=== PATIENT | female | born 1950 | race Caucasian/White ===

== ENCOUNTER 2018-10-27 11:54 | Outpatient (CLI) | payer MEDICARE ==
--- NOTE | 2018-10-27 13:32 | MRI ---
MRI BRAIN AND INTERNAL AUDITORY CANALS WITH AND WITHOUT CONTRAST: Date: 10/27/2018 HISTORY: 67-year-old female with vertigo TECHNIQUE: Multiplanar, multisequence MRI, both whole brain images and thin slices through the IACs, pre and pos t IV injection of gadolinium-based contrast agent. FINDINGS: There is no obstructive hydrocephalus. There is no midline shift or any other evidence of mass effect . There is no extra-axial fluid collection. There are mild chronic ischemic white matter changes due to microvascular atherosclerosis. There is otherwise no major intra-axial signal abnormality, abn ormal enhancement, mass, recent hemorrhage, or restricted diffusion. There is no abnormal enhancement, mass, or morphologic abnormality, involving the cerebellopontine an gles, 7th-8th nerve complexes, internal auditory canals, cochleae, vestibules, vestibular aqueducts, or semicircular canals. IMPRESSION: 1) mild chronic ischemic white matter changes. 2) otherwise negative
== END 2018-10-27 11:55 | disposition home or self-care (01) ==
LOC: SCSMRI 11:54
PROVIDERS: ATTEND Psychiatry & Neurology Neurology
DX: R42 Dizziness and giddiness (principal); I67.82 Cerebral ischemia
CPT/HCPCS: 70553; 82565

== ENCOUNTER 2021-01-02 11:01 | Inpatient (IN) | payer MEDICARE ==
[~2021-01-02 11:01] MED LIST: Iopamidol-370 76% 500 ML 1 ML ONE
[2021-01-02 12:07] LABS: #Eosinphils 0.1 thou/uL (0.0-0.7); #Lymphocytes 1.2 thou/uL (1.20-3.40); #Monocytes 0.6 thou/uL (0.11-0.59); #Neutrophils 3.6 thou/uL (1.40-6.50); %Basophils 0.4 % (0.0-1.0); %Lymphocytes 21.4 % (21.0-51.0); %Monocytes 10.9 % (0.0-10.0); %Neutrophils 65.3 % (42.0-75.0); Hemoglobin 13.9 g/dL (12.0-16.0); Mean Corpuscular HGB CONC 34.5 g/dL (32.0-36.0); Mean Corpuscular Hemoglobin 32.4 pg (27.0-31.0); Mean Platelet Volume 6.8 fL (7.4-10.4); Platelet Count 383 thou/uL (130-400); RBC Distribution Width 11.7 % (11.5-14.5); Red Blood Cell (RBC) Count 4.28 mill/uL (4.20-5.40); White Blood Cell (WBC) Count 5.5 thou/uL (4.8-10.8)
[2021-01-02 12:25] LABS: Acetaminophen Less than 6.0 mcg/mL (10.0-30.0); Alcohol Less than 10 mg/dL (Less than 10); Salicylate Less than 8.0 mg/dL (15.0-30.0)
[2021-01-02 12:29] LABS: ALT (SGPT) 9 U/L (8-55); AST (SGOT) 21 U/L (5-34); Albumin 3.4 g/dL (3.4-4.8); Alkaline Phosphatase 58 U/L (40-110); Anion Gap 14 mmol/L (10-20); BUN (Urea Nitrogen) 9 mg/dL (9.8-20.1); Bilirubin, Total 0.5 mg/dL (0.2-1.2); Calc. Creatinine Clearance 0 mL/min (70-130); Carbon Dioxide 27 mmol/L (23-31); Chloride 87 mmol/L (98-107); Globulin 2.8 g/dL (2.4-3.5); Glucose 85 mg/dL (83-110); Lipase 27 U/L (8-78); Potassium 4.2 mmol/L (3.5-5.1); Protein, Total 6.2 g/dL (5.8-8.1); Sodium 124 mmol/L (136-145)
[2021-01-02] MEDS ORDERED: Guaifenesin DM 100-10/5 ML UDCUP PO PRN (15:57)
[2021-01-02] MEDS ORDERED: Acetaminophen 325 MG TAB PO PRN ×2 (15:57→18:15)
[2021-01-02] MEDS ORDERED: Senokot S 8.6-50 MG TAB PO PRN (15:57)
[2021-01-02] MEDS ORDERED: Multivitamins, Adult 10 ML, Folic Acid 1 MG, Thiamine HCl 100 MG in Dextrose 5 %-0.45 %... IV SCH (16:30)
[2021-01-02 17:37] VITALS: BMI 27.3
[2021-01-02] MEDS ORDERED: Sodium Chloride 0.9% 1,000 ML IV SCH (18:15)
[2021-01-02] MEDS ORDERED: Ondansetron PF 4 MG/2 ML Vial IVP PRN (18:15)
[2021-01-02] MEDS ORDERED: Ondansetron ODT 4 MG TAB SL PRN (18:15)
[2021-01-02] MEDS: Nicotine 14 MG PATCH TD SCH (18:21)
[2021-01-02] MEDS: Famotidine 20 MG TAB PO SCH (20:37)
[2021-01-02 21:08] LABS: Bacteria/HPF None Seen HPF (None Seen); Bilirubin Negative (Negative); Blood, Urine 2+ (Negative); Clarity Clear (Clear); Glucose, Urine (Dipstick) Normal (Negative); Ketone, Urine 10 mg/dL (Negative); Leukocyte Negative Leu/uL (Negative); Nitrite Negative (Negative); Protein, Urine (Dipstick) 30 mg/dL (Neg-Trace); Urobilinogen Normal mg/dL (Less than 2)
[2021-01-02 21:09] LABS: Specific Gravity, Urine 1.054 (1.002-1.036)
[2021-01-02 22:55] LABS: Creatinine, Urine 163.69 mg/dL (47-110); Sodium, Urine Less than 20 mmol/L (Not Available)
[2021-01-03] MEDS ORDERED: Melatonin 3 MG TAB PO PRN (00:56)
[2021-01-03 08:03] LABS: #Eosinphils 0.1 thou/uL (0.0-0.7); #Lymphocytes 1.1 thou/uL (1.20-3.40); #Monocytes 0.6 thou/uL (0.11-0.59); #Neutrophils 3.2 thou/uL (1.40-6.50); %Basophils 0.6 % (0.0-1.0); %Eosinophils 2.7 % (0.0-10.0); %Lymphocytes 22.5 % (21.0-51.0); %Neutrophils 63.1 % (42.0-75.0); Hemoglobin 12.3 g/dL (12.0-16.0); Mean Corpuscular HGB CONC 34.5 g/dL (32.0-36.0); Mean Corpuscular Hemoglobin 32.5 pg (27.0-31.0); Mean Corpuscular Volume 94.4 fL (78.0-98.0); Mean Platelet Volume 7.1 fL (7.4-10.4); Platelet Count 365 thou/uL (130-400); RBC Distribution Width 11.7 % (11.5-14.5); Red Blood Cell (RBC) Count 3.78 mill/uL (4.20-5.40); White Blood Cell (WBC) Count 5.1 thou/uL (4.8-10.8)
[2021-01-03 08:11] LABS: ALT (SGPT) 10 U/L (8-55); AST (SGOT) 22 U/L (5-34); Albumin 3.1 g/dL (3.4-4.8); Alkaline Phosphatase 54 U/L (40-110); Anion Gap 14 mmol/L (10-20); BUN (Urea Nitrogen) 8 mg/dL (9.8-20.1); Bilirubin, Total 0.5 mg/dL (0.2-1.2); Calc. Creatinine Clearance 61 mL/min (70-130); Calcium 8.8 mg/dL (7.8-10.44); Carbon Dioxide 24 mmol/L (23-31); Chloride 90 mmol/L (98-107); Globulin 3.1 g/dL (2.4-3.5); Glucose 91 mg/dL (83-110); Potassium 3.7 mmol/L (3.5-5.1); Protein, Total 6.2 g/dL (5.8-8.1); Sodium 124 mmol/L (136-145)
[2021-01-03] MEDS: Enoxaparin Sodium 40 MG/0.4 ML SYRINGE SC SCH (08:28)
[2021-01-03] MEDS: Famotidine 20 MG TAB PO SCH ×2 (08:28→22:00)
[2021-01-03 09:30] LABS: Prothrombin Time 13.6 sec (12.0-14.7)
[2021-01-03] MEDS ORDERED: Temazepam 15 MG CAP PO PRN (10:10)
[2021-01-03] MEDS: Sodium Chloride 1 GM TAB PO SCH ×3 (10:52→20:34)
[2021-01-03 14:29] LABS: SARS-CoV-2 PCR by NAA Not Detected (NotDetected)
[2021-01-03] MEDS: Nicotine 14 MG PATCH TD SCH (19:16)
[2021-01-04] MEDS ORDERED: Iothalamate Meglumine 60% 50 ML VIAL FS ONE (07:54)
[2021-01-04] MEDS ORDERED: Levofloxacin 500 mg/D5W 100 ml Premix Bag ONE (08:03)
[2021-01-04] MEDS ORDERED: Promethazine HCl 25 MG/ML VIAL IVPB PRN (08:10)
[2021-01-04] MEDS ORDERED: Promethazine HCl 25 MG/ML VIAL IM PRN (08:10)
[2021-01-04] MEDS ORDERED: Ondansetron HCl/PF 4 MG/2 ML Vial IVP PRN (08:10)
[2021-01-04] MEDS ORDERED: Fentanyl 100 MCG/2 ML VIAL ONE (08:15)
[2021-01-04] MEDS ORDERED: Lidocaine 1% PF 5 ML VIAL ONE (08:17)
[2021-01-04] MEDS ORDERED: PHENYLEPHRINE-NS 100 MCG/ML 10 ML SYRINGE ONE (08:17)
[2021-01-04] MEDS ORDERED: Ondansetron PF 4 MG/2 ML Vial ONE (08:17)
[2021-01-04] MEDS ORDERED: Succinylcholine 200 MG/10 ml SYRINGE FS ONE (08:17)
[2021-01-04] MEDS: Famotidine 20 MG TAB PO SCH ×2 (10:19→21:00)
[2021-01-04] MEDS: Sodium Chloride 1 GM TAB PO SCH ×3 (10:19→22:57)
[2021-01-04 10:57] LABS: Anion Gap 14 mmol/L (10-20); BUN (Urea Nitrogen) 8 mg/dL (9.8-20.1); Calc. Creatinine Clearance 59 mL/min (70-130); Calcium 8.4 mg/dL (7.8-10.44); Carbon Dioxide 22 mmol/L (23-31); Chloride 94 mmol/L (98-107); Glucose 88 mg/dL (83-110); Potassium 3.7 mmol/L (3.5-5.1); Sodium 126 mmol/L (136-145)
[2021-01-04 11:07] LABS: Phosphorus 3.4 mg/dL (2.3-4.7)
[2021-01-04] MEDS: Enoxaparin Sodium 40 MG/0.4 ML SYRINGE SC SCH (11:41)
[2021-01-04] MEDS ORDERED: Ondansetron PF 4 MG/2 ML Vial IVP SCH (12:00)
[2021-01-04] MEDS ORDERED: Cepastat Lozenges 1 LOZ PO PRN (12:51)
[2021-01-04] MEDS: Nicotine 14 MG PATCH TD SCH (16:21)
[2021-01-04] MEDS: Ondansetron PF 4 MG/2 ML Vial IVP PRN (18:26)
[2021-01-05 07:35] LABS: Anion Gap 17 mmol/L (10-20); BUN (Urea Nitrogen) 7 mg/dL (9.8-20.1); Calc. Creatinine Clearance 59 mL/min (70-130); Calcium 8.4 mg/dL (7.8-10.44); Carbon Dioxide 15 mmol/L (23-31); Chloride 96 mmol/L (98-107); Glucose 88 mg/dL (83-110); Potassium 5.3 mmol/L (3.5-5.1); Sodium 123 mmol/L (136-145)
[2021-01-05 07:46] VITALS: BP 158/79; TEMP 97.6
[2021-01-05] MEDS: Famotidine 20 MG TAB PO SCH (07:56)
[2021-01-05] MEDS ORDERED: Lidocaine 1% PF 5 ML VIAL ONE (07:56)
[2021-01-05] MEDS ORDERED: Sodium Bicarbonate 2.5 MEQ/5 ML VIAL ONE (07:56)
[2021-01-05] MEDS: Enoxaparin Sodium 40 MG/0.4 ML SYRINGE SC SCH (07:56)
[2021-01-05] MEDS: Sodium Chloride 1 GM TAB PO SCH ×2 (08:00→14:33)
[2021-01-05] MEDS: Ondansetron PF 4 MG/2 ML Vial IVP PRN (10:06)
[2021-01-05] MEDS: Sodium Bicarbonate Tab 325 MG TAB PO SCH ×2 (10:09→14:33)
[2021-01-05 11:44] LABS: RBC Count-Automated (BF) 1834 /cu.mm; WBC/Nucleated-Auto (BF) 1177 /cu.mm
[2021-01-05 12:10] LABS: BF Color Yellow; Body Fluid Source Peritoneal Fluid; Clarity Hazy (Clear); Tube # EDTA
[2021-01-05 12:34] LABS: BF Segmented Neutrophils 2 %; Cell Count Non Hematic 85 %; Lymphocytes 13 %
[2021-01-05] MEDS: Nicotine 14 MG PATCH TD SCH (14:27)
[2021-01-05 18:51] LABS: Anion Gap 15 mmol/L (10-20); BUN (Urea Nitrogen) 8 mg/dL (9.8-20.1); Calc. Creatinine Clearance 52 mL/min (70-130); Calcium 8.6 mg/dL (7.8-10.44); Carbon Dioxide 27 mmol/L (23-31); Chloride 95 mmol/L (98-107); Glucose 113 mg/dL (83-110); Potassium 4.5 mmol/L (3.5-5.1); Sodium 132 mmol/L (136-145)
== END 2021-01-05 20:03 | disposition home or self-care (01) | DRG 660 ==
LOC: ERS 11:01 → T4-B 14:44
PROVIDERS: ADMIT Internal Medicine; ATTEND Family Medicine
PROC: 0TB48ZX Excision of Left Kidney Pelvis, Via Natural or Artificial Opening Endoscopic, Diagnostic (ICD-10-PCS; principal; 2021-01-02)
PROC: BT1F1ZZ Fluoroscopy of Left Kidney, Ureter and Bladder using Low Osmolar Contrast (ICD-10-PCS; 2021-01-02)
PROC: 0T778DZ Dilation of Left Ureter with Intraluminal Device, Via Natural or Artificial Opening Endoscopic (ICD-10-PCS; 2021-01-02)
PROC: 0W9G3ZZ Drainage of Peritoneal Cavity, Percutaneous Approach (ICD-10-PCS; 2021-01-05)
DX: N13.30 Unspecified hydronephrosis (principal); E22.2 Syndrome of inappropriate secretion of antidiuretic hormone; R18.8 Other ascites; N17.9 Acute kidney failure, unspecified; F17.210 Nicotine dependence, cigarettes, uncomplicated; R31.9 Hematuria, unspecified; G47.00 Insomnia, unspecified; N18.9 Chronic kidney disease, unspecified; J44.9 Chronic obstructive pulmonary disease, unspecified; Z88.5 Allergy status to narcotic agent; Z71.6 Tobacco abuse counseling; Z79.899 Other long term (current) drug therapy
CPT/HCPCS: 36415; 49083; 71260; 74177; 74420; 80048; 80053; 80307; 81001; 82040; 82042; 82570; 83690; 83735; 83880; 83930; 83935; 84100; 84300; 84484; 85025; 85060; 85610; 85730; 87070; 87205; 88112; 88305; 89051; 93005; 93306; C2617; J1650; J1956; J2405; J3010; J3411; J7042; Q9961-U8; Q9967; U0003; U0005

== ENCOUNTER 2021-01-11 12:44 | Inpatient (IN) | payer MEDICARE ==
[2021-01-11 13:14] LABS: #Eosinphils 0.2 thou/uL (0.0-0.7); #Lymphocytes 1.5 thou/uL (1.20-3.40); #Monocytes 0.7 thou/uL (0.11-0.59); #Neutrophils 5.7 thou/uL (1.40-6.50); %Basophils 0.4 % (0.0-1.0); %Eosinophils 2.7 % (0.0-10.0); %Monocytes 8.2 % (0.0-10.0); %Neutrophils 70.7 % (42.0-75.0); Hemoglobin 13.2 g/dL (12.0-16.0); Mean Corpuscular HGB CONC 32.3 g/dL (32.0-36.0); Mean Corpuscular Hemoglobin 30.8 pg (27.0-31.0); Mean Corpuscular Volume 95.4 fL (78.0-98.0); Mean Platelet Volume 6.3 fL (7.4-10.4); Platelet Count 426 thou/uL (130-400); RBC Distribution Width 12.4 % (11.5-14.5); Red Blood Cell (RBC) Count 4.28 mill/uL (4.20-5.40); White Blood Cell (WBC) Count 8.1 thou/uL (4.8-10.8)
[2021-01-11 13:33] LABS: ALT (SGPT) 12 U/L (8-55); AST (SGOT) 21 U/L (5-34); Alkaline Phosphatase 63 U/L (40-110); Anion Gap 18 mmol/L (10-20); BUN (Urea Nitrogen) 17 mg/dL (9.8-20.1); Bilirubin, Total 0.4 mg/dL (0.2-1.2); Calc. Creatinine Clearance 0 mL/min (70-130); Calcium 8.3 mg/dL (7.8-10.44); Carbon Dioxide 24 mmol/L (23-31); Chloride 97 mmol/L (98-107); Glucose 69 mg/dL (83-110); Lipase 18 U/L (8-78); Potassium 4.2 mmol/L (3.5-5.1); Sodium 135 mmol/L (136-145)
[2021-01-11] MEDS ORDERED: Fentanyl 100 MCG/2 ML VIAL ONE (14:12)
[2021-01-11] MEDS ORDERED: Ondansetron PF 4 MG/2 ML Vial ONE (14:12)
[2021-01-11 14:14] LABS: Bilirubin 1+ (Negative); Blood, Urine 3+ (Negative); Clarity Turbid (Clear); Glucose, Urine (Dipstick) Normal (Negative); Ketone, Urine 10 mg/dL (Negative); Leukocyte 500 Leu/uL (Negative); Nitrite Negative (Negative); Protein, Urine (Dipstick) 100 mg/dL (Neg-Trace); Specific Gravity, Urine 1.029 (1.002-1.036); Squamous Epithelial 0-3 HPF (0-3); pH, Urine 5.5 (5.0-9.0)
[2021-01-11 14:23] LABS: WBC/HPF 21-50 HPF (0-3)
[2021-01-11 14:24] LABS: Bacteria/HPF 1+ HPF (None Seen)
[2021-01-11] MEDS ORDERED: cefTRIAXone\\ROCEPHIN 2 GM VIAL ONE (14:51)
[2021-01-11] MEDS ORDERED: diphenhydrAMINE 50 MG/ML VIAL ONE (15:40)
[2021-01-11 17:12] VITALS: BMI 25.9
[2021-01-11] MEDS ORDERED: Ondansetron PF 4 MG/2 ML Vial IVP PRN (18:27)
[2021-01-11] MEDS ORDERED: Acetaminophen 325 MG TAB PO PRN (18:27)
[2021-01-11] MEDS ORDERED: Ondansetron ODT 4 MG TAB PO PRN (18:27)
[2021-01-11] MEDS ORDERED: hydrALAZINE 20 MG/ML VIAL SLOW IVP PRN (18:27)
[2021-01-11] MEDS ORDERED: Benzonatate 100 MG CAP PO PRN (18:27)
[2021-01-11] MEDS ORDERED: Promethazine HCl 12.5 MG in Sodium Chloride 0.9% 50 ML IVPB PRN (18:27)
[2021-01-11] MEDS ORDERED: Loratadine 10 MG TAB PO PRN (18:34)
[2021-01-11] MEDS: Acetaminophen/Codeine 30-300mg Tablet PO SCH ×2 (20:14→21:42)
[2021-01-11] MEDS: Nicotine 14 MG PATCH TD SCH (20:17)
[2021-01-11] MEDS ORDERED: traMADol HCl 50 MG TAB PO SCH (20:41)
[2021-01-11] MEDS ORDERED: HYDROcodone/Acetaminophen 5/325 mg Tablet PO PRN (23:10)
[2021-01-11] MEDS ORDERED: Morphine 4 MG/ML VIAL SLOW IVP PRN (23:27)
[2021-01-12 07:25] LABS: #Eosinphils 0.2 thou/uL (0.0-0.7); #Lymphocytes 1.3 thou/uL (1.20-3.40); #Monocytes 0.6 thou/uL (0.11-0.59); #Neutrophils 4.6 thou/uL (1.40-6.50); %Basophils 0.2 % (0.0-1.0); %Eosinophils 2.4 % (0.0-10.0); %Lymphocytes 19.1 % (21.0-51.0); %Monocytes 8.7 % (0.0-10.0); %Neutrophils 69.5 % (42.0-75.0); Hemoglobin 11.7 g/dL (12.0-16.0); Mean Corpuscular HGB CONC 32.8 g/dL (32.0-36.0); Mean Corpuscular Hemoglobin 31.9 pg (27.0-31.0); Mean Corpuscular Volume 97.1 fL (78.0-98.0); Mean Platelet Volume 6.4 fL (7.4-10.4); Platelet Count 420 thou/uL (130-400); RBC Distribution Width 12.3 % (11.5-14.5); Red Blood Cell (RBC) Count 3.66 mill/uL (4.20-5.40); White Blood Cell (WBC) Count 6.6 thou/uL (4.8-10.8)
[2021-01-12 07:43] LABS: Anion Gap 14 mmol/L (10-20); BUN (Urea Nitrogen) 15 mg/dL (9.8-20.1); Calc. Creatinine Clearance 43 mL/min (70-130); Calcium 8.4 mg/dL (7.8-10.44); Carbon Dioxide 26 mmol/L (23-31); Chloride 98 mmol/L (98-107); Potassium 4.2 mmol/L (3.5-5.1); Sodium 134 mmol/L (136-145)
[2021-01-12 07:49] LABS: Glucose 55 mg/dL (83-110)
[2021-01-12] MEDS ORDERED: Sodium Bicarbonate 2.5 MEQ/5 ML VIAL ONE (08:18)
[2021-01-12] MEDS ORDERED: Lidocaine 1% PF 5 ML VIAL ONE (08:18)
[2021-01-12] MEDS ORDERED: Sodium Chloride 0.9% 10 ML ONE (08:18)
[2021-01-12] MEDS ORDERED: Enoxaparin Sodium 40 MG/0.4 ML SYRINGE SC SCH (09:00)
[2021-01-12] MEDS: Nicotine 14 MG PATCH TD SCH (16:55)
[2021-01-12] MEDS ORDERED: Mag-Al 1200 mg/1200 mg/30 ML UDCUP PO SCH (22:24)
[2021-01-13 07:09] LABS: #Eosinphils 0.1 thou/uL (0.0-0.7); #Lymphocytes 1.1 thou/uL (1.20-3.40); #Monocytes 0.7 thou/uL (0.11-0.59); #Neutrophils 5.2 thou/uL (1.40-6.50); %Basophils 0.3 % (0.0-1.0); %Eosinophils 1.8 % (0.0-10.0); %Lymphocytes 15.2 % (21.0-51.0); %Monocytes 10.3 % (0.0-10.0); %Neutrophils 72.3 % (42.0-75.0); Hemoglobin 11.9 g/dL (12.0-16.0); Mean Corpuscular HGB CONC 33.4 g/dL (32.0-36.0); Mean Corpuscular Volume 95.8 fL (78.0-98.0); Mean Platelet Volume 6.9 fL (7.4-10.4); Platelet Count 319 thou/uL (130-400); RBC Distribution Width 12.3 % (11.5-14.5); Red Blood Cell (RBC) Count 3.71 mill/uL (4.20-5.40); White Blood Cell (WBC) Count 7.2 thou/uL (4.8-10.8)
[2021-01-13 07:22] LABS: Anion Gap 15 mmol/L (10-20); BUN (Urea Nitrogen) 14 mg/dL (9.8-20.1); Calc. Creatinine Clearance 44 mL/min (70-130); Calcium 8.2 mg/dL (7.8-10.44); Carbon Dioxide 24 mmol/L (23-31); Chloride 99 mmol/L (98-107); Glucose 82 mg/dL (83-110); Potassium 4.7 mmol/L (3.5-5.1); Sodium 133 mmol/L (136-145)
[2021-01-13 08:08] VITALS: BP 99/54; TEMP 97.9
== END 2021-01-13 14:15 | disposition home or self-care (01) | DRG 948 ==
LOC: ERS 12:44 → T4-B 15:13
PROVIDERS: ADMIT Internal Medicine; ATTEND Family Medicine
PROC: 0W9G3ZZ Drainage of Peritoneal Cavity, Percutaneous Approach (ICD-10-PCS; principal; 2021-01-12)
DX: R18.8 Other ascites (principal); N13.6 Pyonephrosis; N17.9 Acute kidney failure, unspecified; E22.2 Syndrome of inappropriate secretion of antidiuretic hormone; Z96.0 Presence of urogenital implants; F17.210 Nicotine dependence, cigarettes, uncomplicated; N18.9 Chronic kidney disease, unspecified; K21.9 Gastro-esophageal reflux disease without esophagitis; K80.20 Calculus of gallbladder without cholecystitis without obstruction; E16.2 Hypoglycemia, unspecified; Z88.1 Allergy status to other antibiotic agents; Z79.899 Other long term (current) drug therapy
CPT/HCPCS: 36415; 36416; 49083; 51701; 76705; 80048; 80053; 81003; 81015; 82042; 83690; 84157; 84484; 85025; 87086; 87116; 87206; 88112; 88305; 88341; 88342; 93005; 96365; 96375; J0696; J1200; J1956; J2270; J2405; J2550; J3010

== ENCOUNTER 2021-01-25 22:45 | Inpatient (IN) | payer MEDICARE ==
[2021-01-25 23:37] LABS: #Eosinphils 0.1 thou/uL (0.0-0.7); #Lymphocytes 1.2 thou/uL (1.20-3.40); #Monocytes 0.6 thou/uL (0.11-0.59); #Neutrophils 3.7 thou/uL (1.40-6.50); %Basophils 0.3 % (0.0-1.0); %Eosinophils 1.5 % (0.0-10.0); %Lymphocytes 22.2 % (21.0-51.0); %Monocytes 10.2 % (0.0-10.0); %Neutrophils 65.8 % (42.0-75.0); Hemoglobin 13.6 g/dL (12.0-16.0); Mean Corpuscular HGB CONC 32.9 g/dL (32.0-36.0); Mean Corpuscular Hemoglobin 31.8 pg (27.0-31.0); Mean Corpuscular Volume 96.7 fL (78.0-98.0); Mean Platelet Volume 7.1 fL (7.4-10.4); Platelet Count 482 thou/uL (130-400); RBC Distribution Width 13.6 % (11.5-14.5); Red Blood Cell (RBC) Count 4.29 mill/uL (4.20-5.40); White Blood Cell (WBC) Count 5.6 thou/uL (4.8-10.8)
[2021-01-25 23:56] LABS: ALT (SGPT) 14 U/L (8-55); AST (SGOT) 22 U/L (5-34); Albumin 2.9 g/dL (3.4-4.8); Alkaline Phosphatase 65 U/L (40-110); Anion Gap 23 mmol/L (10-20); BUN (Urea Nitrogen) 28 mg/dL (9.8-20.1); Bilirubin, Total 0.4 mg/dL (0.2-1.2); Calc. Creatinine Clearance 0 mL/min (70-130); Calcium 8.1 mg/dL (7.8-10.44); Carbon Dioxide 19 mmol/L (23-31); Chloride 98 mmol/L (98-107); Globulin 3.2 g/dL (2.4-3.5); Glucose 100 mg/dL (83-110); Potassium 5.3 mmol/L (3.5-5.1); Protein, Total 6.1 g/dL (5.8-8.1); Sodium 135 mmol/L (136-145)
[2021-01-26] MEDS ORDERED: Digoxin 0.5 MG/2 ML AMP ONE (01:29)
[2021-01-26] MEDS ORDERED: Diltiazem HCl 125 MG, Admixture Fee 1 EACH in Sodium Chloride 0.9% 100 ML IVPB SCH (03:00)
[2021-01-26 04:36] LABS: Bacteria/HPF None Seen HPF (None Seen); Bilirubin 1+ (Negative); Blood, Urine Trace (Negative); Clarity Turbid (Clear); Glucose, Urine (Dipstick) Normal (Negative); Ketone, Urine 10 mg/dL (Negative); Leukocyte 75 Leu/uL (Negative); Nitrite Negative (Negative); Protein, Urine (Dipstick) 30 mg/dL (Neg-Trace); Specific Gravity, Urine 1.026 (1.002-1.036); Squamous Epithelial 0-3 HPF (0-3); Urobilinogen Normal mg/dL (Less than 2); WBC/HPF 21-50 HPF (0-3); Yeast-Budding 2+ HPF (None Seen)
[2021-01-26] MEDS ORDERED: Ondansetron ODT 4 MG TAB PO PRN (05:18)
[2021-01-26] MEDS ORDERED: Acetaminophen 650 MG Suppository PR PRN (05:18)
[2021-01-26] MEDS ORDERED: Acetaminophen 325 MG TAB PO PRN (05:18)
[2021-01-26] MEDS ORDERED: Morphine 4 MG/ML VIAL SLOW IVP PRN (05:21)
[2021-01-26] MEDS ORDERED: Amiodarone 150 MG, Admixture Fee 1 EACH in Dextrose 5% in Water 100 ML IVPB SCH (05:45)
[2021-01-26] MEDS ORDERED: Amiodarone 450 MG, Admixture Fee 1 EACH in Dextrose 5% in Water 250 ML IVPB SCH (05:45)
[2021-01-26 06:06] LABS: Troponin I Less than 0.010 ng/mL (< 0.028)
[2021-01-26] MEDS ORDERED: Dextrose 5 % And 0.9 % NaCl 1,000 ML IV SCH (06:30)
[2021-01-26] MEDS ORDERED: Piperacillin/Tazobactam 3.375 GM in Sodium Chloride 0.9% 100 ML IVPB SCH ×2 (07:00→08:00)
[2021-01-26] MEDS ORDERED: DAPTOmycin 500 MG VIAL SLOW IVP SCH (07:00)
[2021-01-26] MEDS ORDERED: Albumin 25% 25 GM/100 ML BOT IVPB SCH (07:00)
[2021-01-26] MEDS: Enoxaparin Sodium 30 MG/0.3 ML SYRINGE SC SCH (07:28)
[2021-01-26 07:53] LABS: SARS-CoV-2 NAA Rapid Test Not Detected (NotDetected)
[2021-01-26] MEDS: DAPTOmycin 500 MG in Sodium Chloride 0.9% 10 ML IVPB SCH (08:40)
[2021-01-26] MEDS ORDERED: Sodium Bicarbonate 2.5 MEQ/5 ML VIAL ONE (09:09)
[2021-01-26] MEDS ORDERED: Lidocaine 1% PF 5 ML VIAL ONE (09:09)
[2021-01-26 09:15] LABS: #Lymphocytes 0.7 thou/uL (1.20-3.40); #Monocytes 0.5 thou/uL (0.11-0.59); #Neutrophils 3.7 thou/uL (1.40-6.50); %Basophils 0.1 % (0.0-1.0); %Lymphocytes 14.7 % (21.0-51.0); %Monocytes 9.7 % (0.0-10.0); %Neutrophils 74.5 % (42.0-75.0); Hemoglobin 9.2 g/dL (12.0-16.0); Mean Corpuscular HGB CONC 28.7 g/dL (32.0-36.0); Mean Corpuscular Hemoglobin 30.4 pg (27.0-31.0); Mean Platelet Volume 7.8 fL (7.4-10.4); Platelet Count 320 thou/uL (130-400); RBC Distribution Width 13.9 % (11.5-14.5); Red Blood Cell (RBC) Count 3.01 mill/uL (4.20-5.40)
[2021-01-26 09:16] LABS: Lactic Acid 1.6 mmol/L (0.5-2.2)
[2021-01-26 09:20] LABS: Magnesium 1.7 mg/dL (1.6-2.6)
[2021-01-26 09:24] LABS: Troponin I Less than 0.010 ng/mL (< 0.028)
[2021-01-26 09:30] LABS: Anion Gap 14 mmol/L (10-20); BUN (Urea Nitrogen) 20 mg/dL (9.8-20.1); Calc. Creatinine Clearance 34 mL/min (70-130); Calcium 5.4 mg/dL (7.8-10.44); Carbon Dioxide 15 mmol/L (23-31); Chloride 98 mmol/L (98-107); Glucose 1107 mg/dL (83-110); Potassium 3.8 mmol/L (3.5-5.1); Sodium 123 mmol/L (136-145)
[2021-01-26 10:12] LABS: Hypochromia SLIGHT = 6-15 cells (100X) (0-5/hpf); MDiff Complete? YES; Macrocytosis SLIGHT = 6-15 cells (100X) (0-5/hpf); Platelet Morphology Comment Appears Adequate; Polychromasia SLIGHT = 2-3 cells (100X) (0-2/hpf)
[2021-01-26] MEDS ORDERED: FLU VACC QS2021-22(65YR UP)/PF 240 MCG/0.7 ML SYRINGE IM ONE (12:00)
[2021-01-26 12:36] LABS: Creatinine, Urine 233.09 mg/dL (47-110); Protein, Urine Random Quant 39 mg/dL (1-14); Sodium, Urine Less than 20 mmol/L (Not Available); Urea Nitrogen, Random Urine 794 mg/dl
[2021-01-26 13:14] LABS: Alpha-Fetoprotein,Tumor Marker 4.8 ng/mL (0.89-8.78); Cancer Antigen - CA 125 365.2 U/mL (Less than 35)
[2021-01-26] MEDS ORDERED: traMADol HCl 50 MG TAB PO PRN (13:18)
[2021-01-26 13:28] LABS: Glucose 115 mg/dL (83-110)
[2021-01-26] MEDS ORDERED: Amiodarone 450 MG in Dextrose 5% in Water 250 ML IVPB SCH (13:30)
[2021-01-26 13:38] LABS: Potassium 5.3 mmol/L (3.5-5.1); Sodium 134 mmol/L (136-145)
[2021-01-26 13:39] LABS: Anion Gap 20 mmol/L (10-20); BUN (Urea Nitrogen) 29 mg/dL (9.8-20.1); Carbon Dioxide 18 mmol/L (23-31); Chloride 101 mmol/L (98-107)
[2021-01-26 13:40] LABS: BUN/Creatinine Ratio 14.01; Calc. Creatinine Clearance 30 mL/min (70-130)
[2021-01-26 13:42] LABS: Calcium 7.9 mg/dL (7.8-10.44)
[2021-01-26 13:43] LABS: Albumin 2.3 g/dL (3.4-4.8); Phosphorus 4.8 mg/dL (2.3-4.7)
[2021-01-26] MEDS: Albumin 25% 25 GM/100 ML BOT IVPB SCH ×2 (16:40→21:15)
[2021-01-26] MEDS: Piperacillin/Tazobactam 3.375 GM in Sodium Chloride 0.9% 100 ML IVPB SCH ×2 (16:40→23:58)
[2021-01-26] MEDS: Sodium Bicarbonate 150 MEQ in Dextrose 5% in Water 1,000 ML IV SCH (18:05)
[2021-01-26 18:11] LABS: T4 2.3 ug/dL (4.87-11.72); Thyroid Stimulating Hormone 1.719 uIU/mL (0.35-4.94)
[2021-01-27] MEDS: Ondansetron PF 4 MG/2 ML Vial IVP PRN ×2 (03:33→21:36)
[2021-01-27 04:01] LABS: #Eosinphils 0.1 thou/uL (0.0-0.7); #Lymphocytes 0.9 thou/uL (1.20-3.40); #Monocytes 0.6 thou/uL (0.11-0.59); %Basophils 0.4 % (0.0-1.0); %Eosinophils 1.2 % (0.0-10.0); %Lymphocytes 13.8 % (21.0-51.0); %Monocytes 9.5 % (0.0-10.0); Anion Gap 15 mmol/L (10-20); BUN (Urea Nitrogen) 24 mg/dL (9.8-20.1); Calc. Creatinine Clearance 30 mL/min (70-130); Calcium 7.8 mg/dL (7.8-10.44); Carbon Dioxide 25 mmol/L (23-31); Chloride 100 mmol/L (98-107); Glucose 108 mg/dL (83-110); Hemoglobin 11.4 g/dL (12.0-16.0); Mean Corpuscular HGB CONC 32.5 g/dL (32.0-36.0); Mean Corpuscular Hemoglobin 31.6 pg (27.0-31.0); Mean Corpuscular Volume 97.4 fL (78.0-98.0); Mean Platelet Volume 7.1 fL (7.4-10.4); Platelet Count 358 thou/uL (130-400); Potassium 4.2 mmol/L (3.5-5.1); RBC Distribution Width 13.7 % (11.5-14.5); Sodium 136 mmol/L (136-145); White Blood Cell (WBC) Count 6.7 thou/uL (4.8-10.8)
[2021-01-27 04:03] LABS: Digoxin 1.33 ng/mL (0.8-2.0)
[2021-01-27 05:23] VITALS: BMI 25.9
[2021-01-27] MEDS: Enoxaparin Sodium 30 MG/0.3 ML SYRINGE SC SCH (10:37)
[2021-01-27] MEDS: DAPTOmycin 500 MG in Sodium Chloride 0.9% 10 ML IVPB SCH (10:37)
[2021-01-27] MEDS: Piperacillin/Tazobactam 3.375 GM in Sodium Chloride 0.9% 100 ML IVPB SCH ×2 (10:37→16:00)
[2021-01-27] MEDS ORDERED: Folic Acid 1 MG TAB PO SCH (11:15)
[2021-01-27] MEDS: Sodium Bicarbonate 150 MEQ in Dextrose 5% in Water 1,000 ML IV SCH (20:43)
[2021-01-28] MEDS: Piperacillin/Tazobactam 3.375 GM in Sodium Chloride 0.9% 100 ML IVPB SCH (00:45)
[2021-01-28] MEDS ORDERED: Sodium Chloride 0.9% 500 ML IVPB SCH (05:15)
[2021-01-28] MEDS ORDERED: Fentanyl 100 MCG/2 ML VIAL SLOW IVP SCH (05:45)
[2021-01-28 06:52] LABS: ALT (SGPT) 22 U/L (8-55); AST (SGOT) 55 U/L (5-34); Albumin 2.7 g/dL (3.4-4.8); Alkaline Phosphatase 55 U/L (40-110); Anion Gap 23 mmol/L (10-20); BUN (Urea Nitrogen) 26 mg/dL (9.8-20.1); Bilirubin, Total 0.6 mg/dL (0.2-1.2); Calc. Creatinine Clearance 22 mL/min (70-130); Carbon Dioxide 20 mmol/L (23-31); Chloride 99 mmol/L (98-107); Globulin 3.4 g/dL (2.4-3.5); Glucose 103 mg/dL (83-110); Potassium 4.8 mmol/L (3.5-5.1); Protein, Total 6.1 g/dL (5.8-8.1); Sodium 137 mmol/L (136-145)
[2021-01-28 07:08] LABS: #Eosinphils 0.1 thou/uL (0.0-0.7); #Lymphocytes 0.8 thou/uL (1.20-3.40); #Neutrophils 7.8 thou/uL (1.40-6.50); %Basophils 0.3 % (0.0-1.0); %Eosinophils 0.6 % (0.0-10.0); %Lymphocytes 8.1 % (21.0-51.0); %Monocytes 9.9 % (0.0-10.0); %Neutrophils 81.1 % (42.0-75.0); Hemoglobin 13.5 g/dL (12.0-16.0); Mean Corpuscular HGB CONC 31.1 g/dL (32.0-36.0); Mean Corpuscular Hemoglobin 31.1 pg (27.0-31.0); Mean Platelet Volume 7.4 fL (7.4-10.4); Platelet Count 340 thou/uL (130-400); Red Blood Cell (RBC) Count 4.33 mill/uL (4.20-5.40); White Blood Cell (WBC) Count 9.6 thou/uL (4.8-10.8)
[2021-01-28 08:01] VITALS: TEMP 96.7
[2021-01-28] MEDS ORDERED: Sodium Chloride 0.9% 500 ML IV SCH (09:00)
[2021-01-28] MEDS: DAPTOmycin 500 MG in Sodium Chloride 0.9% 10 ML IVPB SCH (09:00)
[2021-01-28] MEDS ORDERED: Folic Acid 1 MG TAB PO SCH (09:00)
[2021-01-28] MEDS ORDERED: Morphine 2 MG/ML VIAL SLOW IVP PRN (09:53)
[2021-01-28] MEDS ORDERED: Piperacillin/Tazobactam 3.375 GM in Sodium Chloride 0.9% 100 ML IVPB SCH (12:00)
[2021-01-28] MEDS: Morphine 4 MG/ML VIAL SLOW IVP PRN ×2 (12:01→16:25)
[2021-01-28] MEDS: Albumin 25% 25 GM/100 ML BOT IVPB SCH ×2 (12:02→16:12)
== END 2021-01-28 17:41 | disposition hospice, inpatient (51) | DRG 754 ==
LOC: ERS 22:45 → IMCU/EMU 01-26 04:25
PROVIDERS: ADMIT Student in an Organized Health Care Education/Training Program; ATTEND Internal Medicine
PROC: 0W9G3ZZ Drainage of Peritoneal Cavity, Percutaneous Approach (ICD-10-PCS; principal; 2021-01-26)
DX: C56.9 Malignant neoplasm of unspecified ovary (principal); G93.41 Metabolic encephalopathy; J96.01 Acute respiratory failure with hypoxia; E22.2 Syndrome of inappropriate secretion of antidiuretic hormone; N13.6 Pyonephrosis; E87.2 Acidosis; N17.9 Acute kidney failure, unspecified; J98.11 Atelectasis; R18.0 Malignant ascites; Z66 Do not resuscitate; Z51.5 Encounter for palliative care; Z20.822 Contact with and (suspected) exposure to COVID-19; I48.91 Unspecified atrial fibrillation; F17.210 Nicotine dependence, cigarettes, uncomplicated; N18.9 Chronic kidney disease, unspecified; E87.5 Hyperkalemia; D53.9 Nutritional anemia, unspecified; J43.9 Emphysema, unspecified; Z98.51 Tubal ligation status; Z88.5 Allergy status to narcotic agent; Z88.1 Allergy status to other antibiotic agents; Z79.899 Other long term (current) drug therapy
CPT/HCPCS: 0240U; 36415; 49083; 71045; 76770; 76856; 80048; 80053; 80162; 81003; 81015; 82040; 82105; 82378; 82570; 82607; 82746; 83605; 83735; 83880; 84156; 84300; 84436; 84443; 84484; 84540; 85025; 86301; 86304; 87040; 87070; 87205; 88112; 88305; 93005; 93010; 93923; 94640; J0282; J0878; J1160; J1650; J2270; J2405; J2543; J3010; J3490; J7030; J7042; J7070; J7620; P9047

== ENCOUNTER 2021-01-28 18:11 | Inpatient (IN) | payer OTHER ==
[2021-01-28 18:35] VITALS: BMI 26.7
[2021-01-28] MEDS ORDERED: diphenhydrAMINE 25 MG CAP PO PRN (18:45)
[2021-01-28] MEDS ORDERED: Morphine IR Tab 15 MG TAB PO PRN (18:45)
[2021-01-28] MEDS ORDERED: Loperamide HCl 2 MG CAP PO PRN (18:45)
[2021-01-28] MEDS ORDERED: Scopolamine 1.5 mg/72 hour Patch TOP PRN ×2 (18:45)
[2021-01-28] MEDS ORDERED: Ondansetron ODT 4 MG TAB PO PRN (18:45)
[2021-01-28] MEDS ORDERED: chlorproMAZINE HCl 25 MG in Sodium Chloride 0.9% 50 ML IVPB PRN (18:45)
[2021-01-28] MEDS ORDERED: Acetaminophen 325 MG TAB PO PRN (18:45)
[2021-01-28] MEDS ORDERED: Promethazine HCl 25 MG SUPP PR PRN (18:45)
[2021-01-28] MEDS ORDERED: Senokot 8.6 MG TAB PO PRN (18:45)
[2021-01-28] MEDS ORDERED: chlorproMAZINE HCl 50 MG/2 ML AMP IM PRN ×2 (18:45)
[2021-01-28] MEDS ORDERED: diphenhydrAMINE 50 MG/ML VIAL IVP PRN (18:45)
[2021-01-28] MEDS ORDERED: ALPRAZolam 0.25 MG TAB PO PRN (18:45)
[2021-01-28] MEDS ORDERED: Morphine 10 MG/0.5 ML ORAL SYRINGE SL PRN (18:45)
[2021-01-28] MEDS ORDERED: Lorazepam 1 MG TAB PO PRN ×2 (18:45)
[2021-01-28] MEDS ORDERED: Milk Of Magnesia 30 ML UDCUP PO PRN (18:45)
[2021-01-28] MEDS ORDERED: Zolpidem Tartrate 5 MG TAB PO PRN (18:45)
[2021-01-28] MEDS ORDERED: Haloperidol Lactate 5 MG/ML VIAL SLOW IVP PRN (18:45)
[2021-01-28] MEDS ORDERED: Ondansetron PF 4 MG/2 ML Vial IVP PRN (18:45)
[2021-01-28] MEDS ORDERED: Acetaminophen 650 MG Suppository PR PRN (18:45)
[2021-01-28] MEDS ORDERED: Hyoscyamine Sulfate SL 0.125 mg Tablet SL PRN (18:45)
[2021-01-28] MEDS ORDERED: Lorazepam 2 MG/ML VIAL SLOW IVP PRN ×2 (18:45)
[2021-01-28] MEDS: Morphine 4 MG/ML VIAL SLOW IVP PRN (20:48)
[2021-01-29] MEDS: Morphine 4 MG/ML VIAL SLOW IVP PRN (05:33)
[2021-01-29 08:07] VITALS: BP 56/44; TEMP 97.7
== END 2021-01-29 09:10 | disposition expired | DRG 951 ==
LOC: IMCU/EMU 18:11 → T4-B 18:54
PROVIDERS: ADMIT Family Medicine; ATTEND Family Medicine
DX: Z51.5 Encounter for palliative care (principal); N13.30 Unspecified hydronephrosis; N17.9 Acute kidney failure, unspecified; E87.2 Acidosis; C56.9 Malignant neoplasm of unspecified ovary; R18.0 Malignant ascites; I48.91 Unspecified atrial fibrillation; N18.9 Chronic kidney disease, unspecified; D64.9 Anemia, unspecified; E87.5 Hyperkalemia; R09.2 Respiratory arrest
CPT/HCPCS: J2270